=== PATIENT | female | born 1980 | race Caucasian/White ===

== ENCOUNTER 2017-02-10 16:07 | Inpatient (IN) | payer OTHER ==
[2017-02-10] MEDS ORDERED: Acetaminophen 650 MG in Premix Bag 1 BAG IV ONE (16:58)
--- NOTE | 2017-02-10 17:01 | EDM.PDOC ---
ED HPI GENERAL MEDICAL PROBLEM - General Chief Complaint: Respiratory Problem Stated Complaint: FEVER, CHILLS, BODY ACHES Time Seen by Provider: 02/10/17 16:50 Source of Information: Reports: Patient, Family, RN Notes Reviewed History Limitations: Reports: No Limitations - History of Present Illness INITIAL COMMENTS - FREE TEXT/NARRATIVE: 36-year-old female presents emergency department today with complaint of fever and chills she is vacationing from the [facility] has been in [place] for about 10 or 11 days she denies any tick exposure, does complain of body aches pain in her long bones has an upset stomach no shortness of breath or chest pain has been taking Tylenol and ibuprofen to help control fevers she is been ill for 2 days Generalized Pain Score (Numeric/FACES): 7 - Related Data Allergies Allergy/AdvReac Type Severity Reaction Status Date / Time cephalexin [From Keflex] Allergy Hives Verified 02/10/17 16:28 guaifenesin [From Mucinex] AdvReac Insomnia Verified 02/10/17 16:28 Home Meds: Home Meds Levothyroxine [Synthroid] 1 tab PO DAILY 02/10/17 [History] Past Medical History 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 Social & Family History - Tobacco Use Smoking Status *Q: Never Smoker - Recreational Drug Use Recreational Drug Use: No ED ROS GENERAL - Review of Systems Review Of Systems: See Below Constitutional: Reports: Fever, Chills, Weakness, Fatigue HEENT: Reports: No Symptoms Respiratory: Reports: Cough, Sputum Cardiovascular: Reports: No Symptoms GI/Abdominal: Reports: No Symptoms Musculoskeletal: Reports: Muscle Pain Skin: Reports: No Symptoms Neurological: Reports: No Symptoms Psychiatric: Reports: No Symptoms ED EXAM, GENERAL - Physical Exam Exam: See Below Free Text/Narrative:: General: Female in moderate discomfort secondary to muscle aches and chills, alert and oriented x3 HEENT: head is atraumatic normocephalic, eyes pupils equal round reactive to light, sclera clear no conjunctivitis appreciated. Ears tympanic membranes clear and [place]bott landmarks and light reflex are present bilaterally canals are clear. Nose no septal deviation, nares are clear, no blood present. Mouth mucosa is moist and pink no erythema or exudate noted in soft palate, tongue is midline uvula is midline, dentition is intact. Neck: Supple no thyromegaly no tracheal deviation. Nodes: Cervical nodes subclavicular nodes nontender no palpable lymphadenopathy noted. Lungs: clear to auscultation bilaterally with symmetrical respirations, no adventitious noise appreciated. CV: Regular rate and rhythm S1 and S2 appreciated no murmurs rubs or gallops noted. Abdomen: Soft, nontender, no palpable masses or organomegaly appreciated, no distention no guarding bowel sounds are present, . Neuro: Cranial nerves II through XII grossly intact Skin: Warm and dry, intact Extremities: No lower extremity edema appreciated, Course - Vital Signs Last Recorded V/S: Last Vital Signs Temp 103.2 F H 02/10/17 17:46 Pulse 113 H 02/10/17 17:46 Resp 20 02/10/17 17:46 BP 119/64 02/10/17 17:46 Pulse Ox 96 02/10/17 17:46 - Orders/Labs/Meds Orders: Active Orders 24 hr Category Date Time Status Vital Signs [RC] Q1H Care 02/10/17 16:56 Active Chest 1V Frontal [CR] Stat Exams 02/10/17 16:58 Taken CULTURE BLOOD [BC] Urgent Lab 02/10/17 16:57 Received CULTURE BLOOD [BC] Urgent Lab 02/10/17 16:57 Received CULTURE RESPIRATORY + SMEAR [RM] Stat Lab 02/10/17 17:39 Results Doxycycline [Vibramycin] 100 mg Med 02/10/17 18:30 Ordered Sodium Chloride 0.9% [Normal Saline] 100 ml IV Q12HR Blood Culture x2 Reflex Set [OM.PC] Urgent Oth 02/10/17 16:56 Ordered Medication Orders Doxycycline Hyclate 100 mg/ (Sodium Chloride) 100 mls @ 100 mls/hr IV Q12HR WYATT Labs: Laboratory Tests 02/10/17 02/10/17 02/10/17 Range/Units 16:57 16:57 16:57 WBC 7.9 (4.5-11.0) K/uL RBC 4.56 (3.30-5.50) M/uL Hgb 14.0 (12.0-15.0) g/dL Hct 41.4 (36.0-48.0) % MCV 91 (80-98) fL MCH 31 (27-31) pg MCHC 34 (32-36) % Plt Count 136 L (150-400) K/uL Neut % (Auto) 87 H (36-66) % Lymph % (Auto) 7 L (24-44) % [place] % (Auto) 6 (2-6) % Eos % (Auto) 0 L (2-4) % Baso % (Auto) 0 (0-1) % Sodium 138 L (140-148) mmol/L Potassium 3.8 (3.6-5.2) mmol/L Chloride 104 (100-108) mmol/L Carbon Dioxide 24 (21-32) mmol/L Anion Gap 13.8 (5.0-14.0) mmol/L BUN 11 (7-18) mg/dL Creatinine 0.9 (0.6-1.0) mg/dL Est Cr Clr Drug Dosing 69.66 mL/min Estimated GFR (MDRD) > 60 (>60) Glucose 94 (74-106) mg/dL Lactic Acid 3.2 H (0.4-2.0) mmol/L Calcium 8.8 (8.5-10.1) mg/dL Total Bilirubin 1.5 H (0.2-1.0) mg/dL AST 14 L (15-37) U/L ALT 1 L (12-78) U/L Alkaline Phosphatase 50 (46-116) U/L C-Reactive Protein 8.41 H (0.0-0.3) mg/dL Total Protein 7.5 (6.4-8.2) g/dL Albumin 3.5 (3.4-5.0) g/dL Globulin 4.0 H (2.3-3.5) g/dL Albumin/Globulin Ratio 0.9 L (1.2-2.2) Urine Color Urine Appearance Urine pH (4.5-8.0) Ur Specific [place] (1.008-1.030) Urine Protein (NEGATIVE) mg/dL Urine Glucose (UA) (NEGATIVE) mg/dL Urine Ketones (NEGATIVE) mg/dL Urine Occult Blood (NEGATIVE) Urine Nitrite (NEGATIVE) Urine Bilirubin (NEGATIVE) Urine Urobilinogen (NORMAL) mg/dL Ur Leukocyte Esterase (NEGATIVE) Urine RBC (0-5) Urine WBC (0-5) Ur Epithelial Cells Amorphous Sediment Urine Bacteria Urine Mucus 02/10/17 Range/Units 17:22 WBC (4.5-11.0) K/uL RBC (3.30-5.50) M/uL Hgb (12.0-15.0) g/dL Hct (36.0-48.0) % MCV (80-98) fL MCH (27-31) pg MCHC (32-36) % Plt Count (150-400) K/uL Neut % (Auto) (36-66) % Lymph % (Auto) (24-44) % [place] % (Auto) (2-6) % Eos % (Auto) (2-4) % Baso % (Auto) (0-1) % Sodium (140-148) mmol/L Potassium (3.6-5.2) mmol/L Chloride (100-108) mmol/L Carbon Dioxide (21-32) mmol/L Anion Gap (5.0-14.0) mmol/L BUN (7-18) mg/dL Creatinine (0.6-1.0) mg/dL Est Cr Clr Drug Dosing mL/min Estimated GFR (MDRD) (>60) Glucose (74-106) mg/dL Lactic Acid (0.4-2.0) mmol/L Calcium (8.5-10.1) mg/dL Total Bilirubin (0.2-1.0) mg/dL AST (15-37) U/L ALT (12-78) U/L Alkaline Phosphatase (46-116) U/L C-Reactive Protein (0.0-0.3) mg/dL Total Protein (6.4-8.2) g/dL Albumin (3.4-5.0) g/dL Globulin (2.3-3.5) g/dL Albumin/Globulin Ratio (1.2-2.2) Urine Color Yellow Urine Appearance Clear Urine pH 7.0 (4.5-8.0) Ur Specific [place] 1.010 (1.008-1.030) Urine Protein Negative (NEGATIVE) mg/dL Urine Glucose (UA) Normal (NEGATIVE) mg/dL Urine Ketones Negative (NEGATIVE) mg/dL Urine Occult Blood Moderate (NEGATIVE) Urine Nitrite Negative (NEGATIVE) Urine Bilirubin Negative (NEGATIVE) Urine Urobilinogen Normal (NORMAL) mg/dL Ur Leukocyte Esterase Negative (NEGATIVE) Urine RBC 0-5 (0-5) Urine WBC 0-5 (0-5) Ur Epithelial Cells Many Amorphous Sediment Few Urine Bacteria Rare Urine Mucus Few Meds: Medications Generic Name Dose Route Start Last Admin Trade Name Freq PRN Reason Stop Dose Admin Doxycycline Hyclate 100 mg/ 100 mls @ 100 mls/hr 02/10/17 18:30 Sodium Chloride IV Q12HR WYATT Discontinued Medications Generic Name Dose Route Start Last Admin Trade Name Freq PRN Reason Stop Dose Admin Acetaminophen 650 mg/ Premix 65 mls @ 400 mls/hr 02/10/17 16:58 02/10/17 17: 31 IV 02/10/17 17:07 400 mls/hr NOW ONE Administration Lactated Ringer's 1,000 mls @ 999 mls/hr 02/10/17 16:58 02/10/17 17:34 Ringers, Lactated IV 02/10/17 17:58 999 mls/hr BOLUS ONE Administration Ketorolac Tromethamine 30 mg 02/10/17 18:16 Toradol IVPUSH 02/10/17 18:17 ONETIME ONE Departure - Departure Time of Disposition: 18:24 Disposition: Admitted As Inpatient 68 Condition: Good Clinical Impression: Sepsis Qualifiers: Sepsis type: sepsis due to unspecified organism Qualified Code(s): A41.9 - Sepsis, unspecified organism - Discharge Information Forms: ED Department Discharge - My Orders Last 24 Hours: My Active Orders 02/10/17 16:56 Vital Signs [RC] Q1H Blood Culture x2 Reflex Set [OM.PC] Urgent 02/10/17 16:57 CULTURE BLOOD [BC] Urgent CULTURE BLOOD [BC] Urgent 02/10/17 16:58 Chest 1V Frontal [CR] Stat 02/10/17 17:39 CULTURE RESPIRATORY + SMEAR [RM] Stat 02/10/17 18:30 Doxycycline [Vibramycin] 100 mg Sodium Chloride 0.9% [Normal Saline] 100 ml IV Q12HR - Assessment/Plan Last 24 Hours: My Active Orders 02/10/17 16:56 Vital Signs [RC] Q1H Blood Culture x2 Reflex Set [OM.PC] Urgent 02/10/17 16:57 CULTURE BLOOD [BC] Urgent CULTURE BLOOD [BC] Urgent 02/10/17 16:58 Chest 1V Frontal [CR] Stat 02/10/17 17:39 CULTURE RESPIRATORY + SMEAR [RM] Stat 02/10/17 18:30 Doxycycline [Vibramycin] 100 mg Sodium Chloride 0.9% [Normal Saline] 100 ml IV Q12HR Plan: Assessment Acuity = acute Site and laterality = sepsis probable due to anaplasmosis tickborne illness complicated patient with known hypothyroidism Etiology = suspicious for tick bite Manifestations = fever, chills, muscle pain, long bone pain Location of injury = Home Lab values = platelets low at 136, sodium low at 138 consistent hyponatremia lactic acid elevated at 3.2 consistent lactic acidosis total bilirubin elevated 1.5 consistent hyperbilirubinemia AST at 14 ALTs at 1 liver enzymes a low CRP elevated at 8.42, urinalysis unremarkable chest x-ray I did review films myself I cannot appreciate any acute process, the official read from radiology is pending Plan Called discussed case with hospitalist on-call they agreed to come and evaluate the patient in the ED for admission she was started on IV doxycycline and given Toradol for muscle pain Patient was in agreement with the plan all questions were answered, This note was dictated using [employer] voice recognition software please call with any questions.
[2017-02-10] MEDS: Lactated Ringers 1,000 ML IV ONE ×2 (17:34→18:50)
[2017-02-10] MEDS ORDERED: Ketorolac 30 MG/ML SDV IVPUSH ONE (18:16)
[2017-02-10] MEDS ORDERED: Lactated Ringers 1,000 ML IV ONE (18:46)
[2017-02-10] MEDS: Doxycycline 100 MG in Sodium Chloride 0.9% 100 ML IV SCH (19:01)
[2017-02-10] MEDS ORDERED: Codeine/guaiFENesin 100mg-10 MG/5 ML Syrup 10 ML Cup PO ONE (19:06)
[2017-02-10] MEDS ORDERED: Ondansetron 4 MG/2 ML SDV IVPUSH ONE (19:06)
--- NOTE | 2017-02-10 19:35 | PCM.HP ---
H&P History of Present Illness - General Date of Service: 02/10/17 Admit Problem/Dx: Admission Diagnosis/Problem Admission Diagnosis/Problem Sepsis Source of Information: Patient, Family (), Provider, RN History Limitations: Reports: No Limitations - History of Present Illness Initial Comments - Free Text/Narative: - General Chief Complaint: Respiratory Problem Stated Complaint: FEVER, CHILLS, BODY ACHES Source of Information: Reports: Patient, Family, RN Notes Reviewed History Limitations: Reports: No Limitations - History of Present Illness 36-year-old female presents emergency department today with complaint of fever and chills, she is vacationing from the [facility] has been in [place] for about 10 or 11 days. She denies any tick exposure, does complain of body aches pain in her long bones, has an upset stomach, denies shortness of breath or chest pain, has been taking Tylenol and ibuprofen to help control fevers. She has been ill for 2 days. Acuity = acute Site and laterality = sepsis probable due to anaplasmosis tickborne illness, complicated patient with known hypothyroidism Etiology = suspicious for tick bite Manifestations = fever, chills, muscle pain, long bone pain Location of injury = Home Lab values = platelets low at 136, sodium low at 138 consistent hyponatremia lactic acid elevated at 3.2 consistent lactic acidosis total bilirubin elevated 1.5 consistent hyperbilirubinemia AST at 14 ALTs at 1 liver enzymes a low CRP elevated at 8.42, urinalysis unremarkable chest x-ray:no acute process, the official read from radiology is pending. Plan Called discussed case with hospitalist on-call they agreed to come and evaluate the patient in the ED for admission she was started on IV doxycycline and given Toradol for muscle pain. Onset of Symptoms: Reports: Gradual Duration of Symptoms: Reports: Day(s): (4) Location: Reports: Generalized (fever with shaking chills) Quality: Reports: Other (rates pain at 7 out of 10. muscle and long bone pain) Severity: Severe Improves with: Reports: None Worsens with: Reports: None Context: Reports: Other (illness for the past 4 day cough, 2 days of fever and chills.) Associated Symptoms: Reports: Cough, Fever/Chills, Headaches, Malaise, Nausea/ Vomiting Generalized Pain Score (Numeric/FACES): 7 - Related Data Allergies/Adverse Reactions: Allergies Allergy/AdvReac Type Severity Reaction Status Date / Time cephalexin [From Keflex] Allergy Hives Verified 02/10/17 16:28 guaifenesin [From Mucinex] AdvReac Insomnia Verified 02/10/17 16:28 Home Medications: Home Meds Levothyroxine [Synthroid] 1 tab PO DAILY 02/10/17 [History] 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 , lives with and 3 year old daughter in [place]) H&P Review of Systems - Review of Systems: Review Of Systems: See Below General: Reports: Fever, Chills, Malaise HEENT: Reports: Contact Lenses Pulmonary: Reports: Cough Cardiovascular: Reports: No Symptoms Gastrointestinal: Reports: Nausea, Vomiting Genitourinary: Reports: No Symptoms Musculoskeletal: Reports: Leg Pain, Joint Pain, Muscle Pain, Muscle Stiffness Skin: Reports: No Symptoms Psychiatric: Reports: No Symptoms Neurological: Reports: Headache, Tremors (secondary to high fevers) Hematologic/Lymphatic: Reports: No Symptoms Immunologic: Reports: No Symptoms Exam - Exam Exam: See Below - Vital Signs Vital Signs: Last Vital Signs Temp 38.8 C H 02/10/17 19:05 Pulse 105 H 02/10/17 19:05 Resp 20 02/10/17 19:05 BP 127/70 02/10/17 19:05 Pulse Ox 97 02/10/17 19:05 Weight: 55.1 kg - Exam General: Alert, Oriented, Cooperative, Other (laying on ER stretcher, curled up with shaking chills and fever) HEENT: PERRLA, Conjunctiva Clear, EACs Clear, EOMI, Hearing Intact, Mucosa Moist & [place], Nares Patent, Normal Nasal Septum, Posterior Pharynx Clear, Pupils Equal, Pupils Reactive, TMs Clear Neck: Supple, Trachea Midline Lungs: Clear to Auscultation, Normal Respiratory Effort, Other (cough present) Cardiovascular: Regular Rate, Regular Rhythm, Normal S1, Normal S2 GI/Abdominal Exam: Normal Bowel Sounds, Soft, Non-Tender, No Organomegaly, No Distention (Female) Exam: Deferred Rectal (Female) Exam: Deferred Back Exam: Normal Inspection Extremities: Normal Inspection, Normal Range of Motion, Non-Tender, No Pedal Edema, Normal Capillary Refill Peripheral Pulses: 2+: Dorsalis Pedis (L), Dorsalis Pedis (R) Skin: Warm, Dry, Intact Neurological: Strength Equal Bilateral, Normal Speech, Normal Tone Neuro Extensive - Mental Status: Alert, Oriented x3, Normal Mood/Affect, Normal Cognition, Memory Intact Psychiatric: Alert, Normal Affect, Normal Mood - Patient Data Lab Results Last 24 hrs: Laboratory Results - last 24 hr 02/10/17 02/10/17 02/10/17 Range/Units 16:57 16:57 16:57 WBC 7.9 (4.5-11.0) K/uL RBC 4.56 (3.30-5.50) M/uL Hgb 14.0 (12.0-15.0) g/dL Hct 41.4 (36.0-48.0) % MCV 91 (80-98) fL MCH 31 (27-31) pg MCHC 34 (32-36) % Plt Count 136 L (150-400) K/uL Neut % (Auto) 87 H (36-66) % Lymph % (Auto) 7 L (24-44) % [place] % (Auto) 6 (2-6) % Eos % (Auto) 0 L (2-4) % Baso % (Auto) 0 (0-1) % Sodium 138 L (140-148) mmol/L Potassium 3.8 (3.6-5.2) mmol/L Chloride 104 (100-108) mmol/L Carbon Dioxide 24 (21-32) mmol/L Anion Gap 13.8 (5.0-14.0) mmol/L BUN 11 (7-18) mg/dL Creatinine 0.9 (0.6-1.0) mg/dL Est Cr Clr Drug Dosing 69.66 mL/min Estimated GFR (MDRD) > 60 (>60) Glucose 94 (74-106) mg/dL Lactic Acid 3.2 H (0.4-2.0) mmol/L Calcium 8.8 (8.5-10.1) mg/dL Total Bilirubin 1.5 H (0.2-1.0) mg/dL AST 14 L (15-37) U/L ALT 1 L (12-78) U/L Alkaline Phosphatase 50 (46-116) U/L C-Reactive Protein 8.41 H (0.0-0.3) mg/dL Total Protein 7.5 (6.4-8.2) g/dL Albumin 3.5 (3.4-5.0) g/dL Globulin 4.0 H (2.3-3.5) g/dL Albumin/Globulin Ratio 0.9 L (1.2-2.2) Urine Color Urine Appearance Urine pH (4.5-8.0) Ur Specific [place] (1.008-1.030) Urine Protein (NEGATIVE) mg/dL Urine Glucose (UA) (NEGATIVE) mg/dL Urine Ketones (NEGATIVE) mg/dL Urine Occult Blood (NEGATIVE) Urine Nitrite (NEGATIVE) Urine Bilirubin (NEGATIVE) Urine Urobilinogen (NORMAL) mg/dL Ur Leukocyte Esterase (NEGATIVE) Urine RBC (0-5) Urine WBC (0-5) Ur Epithelial Cells Amorphous Sediment Urine Bacteria Urine Mucus 02/10/17 Range/Units 17:22 WBC (4.5-11.0) K/uL RBC (3.30-5.50) M/uL Hgb (12.0-15.0) g/dL Hct (36.0-48.0) % MCV (80-98) fL MCH (27-31) pg MCHC (32-36) % Plt Count (150-400) K/uL Neut % (Auto) (36-66) % Lymph % (Auto) (24-44) % [place] % (Auto) (2-6) % Eos % (Auto) (2-4) % Baso % (Auto) (0-1) % Sodium (140-148) mmol/L Potassium (3.6-5.2) mmol/L Chloride (100-108) mmol/L Carbon Dioxide (21-32) mmol/L Anion Gap (5.0-14.0) mmol/L BUN (7-18) mg/dL Creatinine (0.6-1.0) mg/dL Est Cr Clr Drug Dosing mL/min Estimated GFR (MDRD) (>60) Glucose (74-106) mg/dL Lactic Acid (0.4-2.0) mmol/L Calcium (8.5-10.1) mg/dL Total Bilirubin (0.2-1.0) mg/dL AST (15-37) U/L ALT (12-78) U/L Alkaline Phosphatase (46-116) U/L C-Reactive Protein (0.0-0.3) mg/dL Total Protein (6.4-8.2) g/dL Albumin (3.4-5.0) g/dL Globulin (2.3-3.5) g/dL Albumin/Globulin Ratio (1.2-2.2) Urine Color Yellow Urine Appearance Clear Urine pH 7.0 (4.5-8.0) Ur Specific [place] 1.010 (1.008-1.030) Urine Protein Negative (NEGATIVE) mg/dL Urine Glucose (UA) Normal (NEGATIVE) mg/dL Urine Ketones Negative (NEGATIVE) mg/dL Urine Occult Blood Moderate (NEGATIVE) Urine Nitrite Negative (NEGATIVE) Urine Bilirubin Negative (NEGATIVE) Urine Urobilinogen Normal (NORMAL) mg/dL Ur Leukocyte Esterase Negative (NEGATIVE) Urine RBC 0-5 (0-5) Urine WBC 0-5 (0-5) Ur Epithelial Cells Many Amorphous Sediment Few Urine Bacteria Rare Urine Mucus Few Result Diagrams: 02/10/17 16:57 02/10/17 16:57 Mannie Results Last 24 hrs: Microbiology 02/10/17 17:39 Gram Stain - Final Nasopharynx, Unspecified *Q Meaningful Use (ADM) - VTE *Q VTE Criteria *Q: - Stroke *Q Stroke Criteria *Q: - AMI *Q AMI Criteria *Q: - Problem List (1) Sepsis SNOMED Code(s): 78954220 ICD Code: A41.9 - SEPSIS, UNSPECIFIED ORGANISM Status: Acute Priority: High Current Visit: Yes Qualifiers: Sepsis type: sepsis due to unspecified organism Qualified Code(s): A41.9 - Sepsis, unspecified organism Problem List Initiated/Reviewed/Updated: Yes Orders Last 24hrs: Active Orders 24 hr Category Date Time Status Patient Status Manage Transfer [TRANSFER] Routine ADT 02/10/17 19:20 Ordered Vital Signs [RC] Q1H Care 02/10/17 16:56 Active Chest 1V Frontal [CR] Stat Exams 02/10/17 16:58 Taken CULTURE BLOOD [BC] Urgent Lab 02/10/17 16:57 Received CULTURE BLOOD [BC] Urgent Lab 02/10/17 16:57 Received CULTURE RESPIRATORY + SMEAR [RM] Stat Lab 02/10/17 17:39 Results Doxycycline [Vibramycin] 100 mg Med 02/10/17 18:00 Active Sodium Chloride 0.9% [Normal Saline] 100 ml IV Q12H Lactated Ringers [Ringers, Lactated] 1,000 ml Med 02/10/17 18:46 Active IV BOLUS Blood Culture x2 Reflex Set [OM.PC] Urgent Oth 02/10/17 16:56 Ordered Resuscitation Status Routine Resus Stat 02/10/17 19:21 Ordered Medication Orders Doxycycline Hyclate 100 mg/ (Sodium Chloride) 100 mls @ 100 mls/hr IV Q12H [facility] Last Admin: 02/10/17 19:01 Dose: 100 mls/hr Lactated Ringer's (Ringers, Lactated) 1,000 mls @ 999 mls/hr IV BOLUS ONE Stop: 02/10/17 19:46 Last Admin: 02/10/17 18:58 Dose: 999 mls/hr Assessment/Plan Comment:: -Assessment/Plan Comment:: Chief Complaint: Respiratory Problem Stated Complaint: FEVER, CHILLS, BODY ACHES Source of Information: Reports: Patient, Family, RN Notes Reviewed History Limitations: Reports: No Limitations - History of Present Illness 36-year-old female presents emergency department today with complaint of fever and chills, she is vacationing from the state of [place] has been in [place] for about 10 or 11 days. She denies any tick exposure, does complain of body aches pain in her long bones, has an upset stomach, denies shortness of breath or chest pain, has been taking Tylenol and ibuprofen to help control fevers. She has been ill for 2 days. Acuity = acute Site and laterality = sepsis probable due to anaplasmosis tickborne illness, complicated patient with known hypothyroidism Etiology = suspicious for tick bite Manifestations = fever, chills, muscle pain, long bone pain Location of injury = Home Lab values = platelets low at 136, sodium low at 138 consistent hyponatremia lactic acid elevated at 3.2 consistent lactic acidosis total bilirubin elevated 1.5 consistent hyperbilirubinemia AST at 14 ALTs at 1 liver enzymes a low CRP elevated at 8.42, urinalysis unremarkable chest x-ray:no acute process, the official read from radiology is pending. Mrs. Levi started on IV doxycycline and given Toradol for muscle pain in Ed Dept. ASSESSMENT AND PLAN Sepsis with unknown etiology. -IV fluids Normal Saline at 125ml/hr for hydration -Pain medication and antiemetic therapy as needed -regular diet -IV Doxycillin 500mg every 12 hours -repeat Lactic Acid at 2200 and 0200 -blood cultures pending -am labs; CBC, CMP MAINTENANCE ISSUES -DVT prophylaxis; SCD (has low platelet count) -GI prophylaxis; IV Protonix 40mg daily -Moijca catheter; not indicated -Nutrition; regular diet -Nicotine dependence; not required CODE STATUS-FULL CODE ADMISSION STATUS-patient will be admitted to inpatient status, expect at least a 2 night hospital stay for evaluation and management of problems as outlined above. At the time of this admission I do not reasonably expected evaluation and management of this problem will require more than a 96 hour hospital stay. DISPOSITION-anticipate discharge to home after the hospital stay. PRIMARY CARE PROVIDER-Outside Provider, [facility] HOSPITALIST: Dr. Earl
[2017-02-10] MEDS ORDERED: LORazepam 2 MG/ML MDV IV PRN (19:48)
[2017-02-10] MEDS ORDERED: Ondansetron 4 MG Tab.DIS PO PRN (19:48)
[2017-02-10] MEDS ORDERED: Morphine 2 MG/ML Syringe IVPUSH PRN (19:48)
[2017-02-10] MEDS ORDERED: Albuterol/Ipratropium 3.0-0.5 MG/3 ML Neb Soln NEB PRN (19:48)
[2017-02-10] MEDS ORDERED: Albuterol 0.083% 2.5 MG/3 ML Neb Soln NEB PRN (19:48)
[2017-02-10] MEDS ORDERED: Acetaminophen 325 MG Tab PO PRN (19:48)
[2017-02-10] MEDS ORDERED: oxyCODONE 5 MG Tab PO PRN (19:48)
[2017-02-10] MEDS ORDERED: Bisacodyl 5 MG Tab PO PRN (19:48)
[2017-02-10] MEDS ORDERED: Docusate Sodium 100 MG Cap PO PRN (19:48)
[2017-02-10] MEDS ORDERED: Zolpidem 5 MG Tab PO PRN (19:48)
[2017-02-10] MEDS: Pantoprazole 40 MG Vial IVPUSH SCH (20:25)
[2017-02-11] MEDS: Acetaminophen 1,000 MG in Premix Bag 1 BAG IV PRN ×2 (01:10→12:20)
[2017-02-11] MEDS: Ketorolac 30 MG/ML SDV IVPUSH PRN ×3 (03:05→23:04)
[2017-02-11] MEDS: Benzonatate 100 MG Cap PO PRN ×2 (03:05→21:57)
[2017-02-11] MEDS: Sodium Chloride 0.9% 1,000 ML IV SCH ×3 (03:06→21:57)
[2017-02-11] MEDS: Doxycycline 100 MG in Sodium Chloride 0.9% 100 ML IV SCH ×2 (05:08→17:51)
[2017-02-11] MEDS ORDERED: Doxycycline 100 MG in Sodium Chloride 0.9% 100 ML IV SCH (06:10)
[2017-02-11] MEDS: Pantoprazole 40 MG Vial IVPUSH SCH (08:55)
[2017-02-11] MEDS: Levothyroxine 50 MCG Tab PO SCH (08:55)
[2017-02-11] MEDS ORDERED: Levothyroxine 50 MCG Tab PO SCH (09:00)
--- NOTE | 2017-02-11 10:58 | CR ---
Heart size within normal limits. Right lung is clear. Patchy opacity within the left lung base media lly should indicate pneumonia. Recommend radiograph follow-up to resolution.
--- NOTE | 2017-02-11 13:55 | PCM.PN ---
- General Info Date of Service: 02/11/17 Functional Status: Reports: Pain Controlled, Tolerating Diet - Review of Systems General: Reports: Fever Gastrointestinal: Reports: Nausea Musculoskeletal: Reports: Other (diffuse muscle pains) Systems Review Comment:: Febrile overnight but diffuse pains seem to be improving and fever curve improved until this morning. Appetite improved temporarily but then she had another fever spike this afternoon. Pain returned and nausea returned. In general she's feeling better. Not much in the way of urine output yet. - Patient Data Vitals - Most Recent: Last Vital Signs Temp 38.2 C H 02/11/17 12:49 Pulse 86 02/11/17 11:07 Resp 18 02/11/17 11:07 BP 125/55 L 02/11/17 11:07 Pulse Ox 97 02/11/17 11:07 Weight - Most Recent: 55.1 kg I&O - Last 24 Hours: Intake & Output 02/10/17 02/11/17 02/11/17 22:59 06:59 14:59 Intake Total 3000 Output Total 650 600 Balance 2350 -600 Lab Results Last 24 Hours: Laboratory Results - last 24 hr 02/10/17 02/11/17 02/11/17 Range/Units 20:00 02:17 04:40 WBC 8.0 (4.5-11.0) K/uL RBC 3.87 (3.30-5.50) M/uL Hgb 11.9 L D (12.0-15.0) g/dL Hct 35.5 L (36.0-48.0) % MCV 92 (80-98) fL MCH 31 (27-31) pg MCHC 34 (32-36) % Plt Count 122 L (150-400) K/uL Neut % (Auto) 81 H (36-66) % Lymph % (Auto) 11 L (24-44) % Hancock % (Auto) 8 H (2-6) % Eos % (Auto) 0 L (2-4) % Baso % (Auto) 0 (0-1) % Sodium (140-148) mmol/L Potassium (3.6-5.2) mmol/L Chloride (100-108) mmol/L Carbon Dioxide (21-32) mmol/L Anion Gap (5.0-14.0) mmol/L BUN (7-18) mg/dL Creatinine (0.6-1.0) mg/dL Est Cr Clr Drug Dosing mL/min Estimated GFR (MDRD) (>60) Glucose (74-106) mg/dL Lactic Acid 3.4 H 0.9 (0.4-2.0) mmol/L Calcium (8.5-10.1) mg/dL Total Bilirubin (0.2-1.0) mg/dL AST (15-37) U/L ALT (12-78) U/L Alkaline Phosphatase (46-116) U/L Total Protein (6.4-8.2) g/dL Albumin (3.4-5.0) g/dL Globulin (2.3-3.5) g/dL Albumin/Globulin Ratio (1.2-2.2) 02/11/17 Range/Units 04:40 WBC (4.5-11.0) K/uL RBC (3.30-5.50) M/uL Hgb (12.0-15.0) g/dL Hct (36.0-48.0) % MCV (80-98) fL MCH (27-31) pg MCHC (32-36) % Plt Count (150-400) K/uL Neut % (Auto) (36-66) % Lymph % (Auto) (24-44) % Hancock % (Auto) (2-6) % Eos % (Auto) (2-4) % Baso % (Auto) (0-1) % Sodium 140 (140-148) mmol/L Potassium 3.8 (3.6-5.2) mmol/L Chloride 107 (100-108) mmol/L Carbon Dioxide 24 (21-32) mmol/L Anion Gap 8.6 (5.0-14.0) mmol/L BUN 9 (7-18) mg/dL Creatinine 1.0 (0.6-1.0) mg/dL Est Cr Clr Drug Dosing 62.69 mL/min Estimated GFR (MDRD) > 60 (>60) Glucose 89 (74-106) mg/dL Lactic Acid (0.4-2.0) mmol/L Calcium 7.8 L (8.5-10.1) mg/dL Total Bilirubin 1.3 H (0.2-1.0) mg/dL AST 13 L (15-37) U/L ALT 12 D (12-78) U/L Alkaline Phosphatase 35 L (46-116) U/L Total Protein 5.8 L (6.4-8.2) g/dL Albumin 2.6 L (3.4-5.0) g/dL Globulin 3.2 (2.3-3.5) g/dL Albumin/Globulin Ratio 0.8 L (1.2-2.2) Med Orders - Current: Current Medications Acetaminophen (Tylenol) 650 mg PO Q4H PRN PRN Reason: Pain/Fever Albuterol (Proventil Neb Soln) 2.5 mg NEB Q4H PRN PRN Reason: Shortness Of Breath/wheezing Albuterol/Ipratropium (Duoneb 3.0-0.5 Mg/3 Ml) 3 ml NEB QID PRN PRN Reason: Shortness Of Breath/wheezing Benzonatate (Tessalon Perles) 100 mg PO QID PRN PRN Reason: Cough Last Admin: 02/11/17 03:05 Dose: 100 mg Bisacodyl (Dulcolax) 5 mg PO DAILY PRN PRN Reason: Constipation Docusate Sodium (Colace) 100 mg PO BID PRN PRN Reason: Constipation Doxycycline Hyclate 100 mg/ (Sodium Chloride) 100 mls @ 100 mls/hr IV Q12H [facility] Last Admin: 02/11/17 05:08 Dose: 100 mls/hr Sodium Chloride (Normal Saline) 1,000 mls @ 125 mls/hr IV ASDIRECTED [facility] Last Admin: 02/11/17 12:18 Dose: 125 mls/hr Ketorolac Tromethamine (Toradol) 30 mg IVPUSH Q6H PRN PRN Reason: Pain (moderate 4-6) Stop: 02/15/17 19:49 Last Admin: 02/11/17 03:05 Dose: 30 mg Levothyroxine Sodium (Synthroid) 50 mcg PO ACBREAKFAST [facility] Last Admin: 02/11/17 08:55 Dose: 50 mcg Lorazepam (Ativan) 1 mg IV Q6H PRN PRN Reason: Nausea/Vomiting Morphine Sulfate (Morphine) 2 mg IVPUSH Q2H PRN PRN Reason: Pain (severe 7-10) Ondansetron HCl (Zofran Odt) 4 mg PO Q6H PRN PRN Reason: Nausea able to take PO Oxycodone HCl (Oxycodone) 5 mg PO Q4H PRN PRN Reason: Pain (moderate 4-6) Pantoprazole Sodium (Protonix Iv) 40 mg IVPUSH Q12H [facility] Last Admin: 02/11/17 08:55 Dose: 40 mg Zolpidem Tartrate (Ambien) 5 mg PO BEDTIME PRN PRN Reason: Sleep Discontinued Medications Acetaminophen (Tylenol) 650 mg PO Q4H PRN PRN Reason: Pain (Mild 1-3)/fever Last Admin: 02/10/17 21:25 Dose: 650 mg Guaifenesin/Codeine Phosphate (Robitussin Ac) 10 ml PO ONETIME ONE Stop: 02/10/17 19:07 Last Admin: 02/10/17 22:40 Dose: Not Given Acetaminophen 650 mg/ Premix 65 mls @ 400 mls/hr IV NOW ONE Stop: 02/10/17 17:07 Last Admin: 02/10/17 17:31 Dose: 400 mls/hr Lactated Ringer's (Ringers, Lactated) 1,000 mls @ 999 mls/hr IV BOLUS ONE Stop: 02/10/17 17:58 Last Admin: 02/10/17 18:50 Dose: 999 mls/hr Lactated Ringer's (Ringers, Lactated) 1,000 mls @ 999 mls/hr IV BOLUS ONE Stop: 02/10/17 19:46 Last Admin: 02/10/17 18:58 Dose: 999 mls/hr Acetaminophen 1,000 mg/ Premix 100 mls @ 400 mls/hr IV Q6H PRN PRN Reason: Fever/Pain Stop: 02/12/17 00:24 Last Admin: 02/11/17 12:20 Dose: 400 mls/hr Ketorolac Tromethamine (Toradol) 30 mg IVPUSH ONETIME ONE Stop: 02/10/17 18:17 Last Admin: 02/10/17 18:54 Dose: 30 mg Levothyroxine Sodium (Synthroid) 50 mcg PO DAILY [facility] Ondansetron HCl (Zofran) 4 mg IVPUSH ONETIME ONE Stop: 02/10/17 19:07 Last Admin: 02/10/17 19:18 Dose: 4 mg - Exam Quality Assessment: No: Supplemental Oxygen General: Alert, Oriented, Cooperative, No Acute Distress Neck: Supple Lungs: Normal Respiratory Effort GI/Abdominal Exam: No Distention Back Exam: Full Range of Motion Extremities: No Pedal Edema Skin: Warm, Dry Psy/Mental Status: Alert, Normal Affect - Problem List Review Problem List Initiated/Reviewed/Updated: Yes - My Orders Last 24 Hours: My Active Orders 02/11/17 13:52 Acetaminophen [Tylenol] 650 mg PO Q4H PRN - Plan Plan:: -Assessment/Plan Comment:: Probable anaplasmosis with sepsis - clinically doing much better and fever curve has been improving. -Continue IV fluids Normal Saline at 125ml/hr for hydration -Pain medication and antiemetic therapy as needed -regular diet -IV Doxycillin 100mg every 12 hours -Follow-up cultures -Repeat labs in the morning MAINTENANCE ISSUES -DVT prophylaxis; SCD (has low platelet count) -GI prophylaxis; PPI -Mojica catheter; not indicated -Nutrition; regular diet DISPOSITION-anticipate discharge to home after the hospital stay. HOSPITALIST: Dr. Earl
[2017-02-11] MEDS: Acetaminophen 325 MG Tab PO PRN ×2 (16:55→21:18)
[2017-02-12] MEDS: Acetaminophen 325 MG Tab PO PRN ×2 (01:22→08:33)
[2017-02-12] MEDS: Doxycycline 100 MG in Sodium Chloride 0.9% 100 ML IV SCH (05:22)
[2017-02-12] MEDS: Sodium Chloride 0.9% 1,000 ML IV SCH (06:27)
[2017-02-12 07:30] VITALS: BP 114/70
[2017-02-12] MEDS: Levothyroxine 50 MCG Tab PO SCH (08:15)
[2017-02-12] MEDS: Benzonatate 100 MG Cap PO PRN (08:33)
--- NOTE | 2017-02-12 08:42 | PCM.DCSUM1 ---
Discharge Summary - Hospital Course Brief History: healthy 32-year-old female who presented with fever, myalgias and cough. Workup was concerning for tickborne disease with sepsis and she was admitted for management. - Discharge Data Discharge Date: 02/12/17 Discharge Disposition: Home, Self-Care 01 Condition: Fair - Discharge Diagnosis/Problem(s) (1) Left lower lobe pneumonia SNOMED Code(s): 912196351 ICD Code: J18.1 - LOBAR PNEUMONIA, UNSPECIFIED ORGANISM Status: Acute Qualifiers: Pneumonia type: due to unspecified organism Qualified Code(s): J18.1 - Lobar pneumonia, unspecified organism (2) Sepsis SNOMED Code(s): 80601654 ICD Code: A41.9 - SEPSIS, UNSPECIFIED ORGANISM Status: Acute Priority: High Qualifiers: Sepsis type: sepsis due to unspecified organism Qualified Code(s): A41.9 - Sepsis, unspecified organism - Patient Summary/Data Labs Pending at D/C: final results of sputum culture and blood cultures which do not have any growth at the time of discharge Hospital Course: Stacy presented to the emergency room with cough, fever, myalgias and was found to have evidence for sepsis and concern for tickborne disease. She was started on doxycycline as well as IV fluids. Overnight her temperature curve didn't improve and her lactic acid level did bump up but on repeat the third level was in the normal range. The morning after admission she was actually feeling fairly good but as the morning progressed her fever came back and symptoms worsened. We elected to keep her second day for additional symptom management and IV antibiotics. Overnight she had some difficulties with ongoing fevers as well as a progressive cough though she was not hypoxic. On the morning of the second hospital day she had some nausea and generally did not feel well. Cough is productive for yellow sputum. The sputum sample collected the day after admission did reveal moderate gram-positive cocci on Gram stain. Culture was not final on the day of discharge. With the progressive cough I reviewed her chest x-ray and it was more apparent that there was a left lung pneumonia at the time of presentation. I discussed this finding with her. She reported that her family was leaving the area and returning home to [place] after their vacation. She needed to be discharged so she can travel with them. We discussed options and elected to give her a dose of IV ertapenem to provide additional coverage until her sputum culture would be final, hopefully tomorrow morning. I did discharge her with a course of doxycycline because she has shown some improvement during the hospital stay. I will be contacting her tomorrow morning with culture results. She has not needed supplemental oxygen and I think she is safe for travel at this point. Her sepsis has resolved. - Patient Instructions Diet: Regular Diet as Tolerated Activity: As Tolerated Showering/Bathing: May Shower Notify Provider of: Fever, Increased Pain, Nausea and/or Vomiting Other/Special Instructions: 1. You were in the hospital for management of left lower lobe pneumonia. I recommend 5 1/2 more days of antibiotic therapy with doxycycline. Your sputum culture is not yet final and I will contact you tomorrow morning with the results. Please avoid strenuous activities today. 2. Take the doxycycline with food to avoid stomach upset. This antibiotic can make your skin more sensitive to the sun so please use clothing or sunscreen to protect exposed skin. 3. You can alternate acetaminophen 650 mg and ibuprofen 600 mg every few hours to help with pain and fever. 4. Please seek medical attention if you develop fever >101, have severe shortness of breath or you develop severe chest pain. - Discharge Plan Prescriptions/Med Rec: Benzonatate [Tessalon Perles] 100 mg PO QID PRN #30 cap PRN Reason: Cough Doxycycline Hyclate 100 mg PO BID #11 capsule LORazepam [Ativan] 0.5 mg PO Q6H PRN #10 tablet PRN Reason: Nausea Home Medications: Home Meds Levothyroxine [Synthroid] 50 mcg PO DAILY 02/10/17 [History] Benzonatate [Tessalon Perles] 100 mg PO QID PRN #30 cap 02/12/17 [Rx] Doxycycline Hyclate 100 mg PO BID #11 capsule 02/12/17 [Rx] LORazepam [Ativan] 0.5 mg PO Q6H PRN #10 tablet 02/12/17 [Rx] Patient Handouts: Community-Acquired Pneumonia, Adult, Doxycycline tablets or capsules Referrals: PCP,None [Primary Care Provider] - (follow up with your primary care if you do not continue to get better) - Discharge Summary/Plan Comment DC Time >30 min.: No (25) - Patient Data Vitals - Most Recent: Last Vital Signs Temp 99.7 C H 02/12/17 08:33 Pulse 85 02/12/17 07:27 Resp 18 02/12/17 07:27 BP 114/70 02/12/17 07:27 Pulse Ox 90 L 02/12/17 07:27 Weight - Most Recent: 55.1 kg I&O - Last 24 hours: Intake & Output 02/11/17 02/12/17 02/12/17 22:59 06:59 14:59 Intake Total 2622 1391 Output Total 800 700 Balance 1822 691 Med Orders - Current: Current Medications Acetaminophen (Tylenol) 650 mg PO Q4H PRN PRN Reason: Pain/Fever Last Admin: 02/12/17 08:33 Dose: 650 mg Albuterol (Proventil Neb Soln) 2.5 mg NEB Q4H PRN PRN Reason: Shortness Of Breath/wheezing Albuterol/Ipratropium (Duoneb 3.0-0.5 Mg/3 Ml) 3 ml NEB QID PRN PRN Reason: Shortness Of Breath/wheezing Benzonatate (Tessalon Perles) 100 mg PO QID PRN PRN Reason: Cough Last Admin: 02/12/17 08:33 Dose: 100 mg Bisacodyl (Dulcolax) 5 mg PO DAILY PRN PRN Reason: Constipation Docusate Sodium (Colace) 100 mg PO BID PRN PRN Reason: Constipation Doxycycline Hyclate 100 mg/ (Sodium Chloride) 100 mls @ 100 mls/hr IV Q12H [facility] Last Admin: 02/12/17 05:22 Dose: 100 mls/hr Sodium Chloride (Normal Saline) 1,000 mls @ 125 mls/hr IV ASDIRECTED [facility] Last Admin: 02/12/17 06:27 Dose: 125 mls/hr Ertapenem 1 gm/ Sodium (Chloride) 100 mls @ 200 mls/hr IV ONETIME ONE Stop: 02/12/17 09:29 Ketorolac Tromethamine (Toradol) 30 mg IVPUSH Q6H PRN PRN Reason: Pain (moderate 4-6) Stop: 02/15/17 19:49 Last Admin: 02/11/17 23:04 Dose: 30 mg Levothyroxine Sodium (Synthroid) 50 mcg PO ACBREAKFAST [facility] Last Admin: 02/12/17 08:15 Dose: 50 mcg Lorazepam (Ativan) 1 mg IV Q6H PRN PRN Reason: Nausea/Vomiting Morphine Sulfate (Morphine) 2 mg IVPUSH Q2H PRN PRN Reason: Pain (severe 7-10) Ondansetron HCl (Zofran Odt) 4 mg PO Q6H PRN PRN Reason: Nausea able to take PO Last Admin: 02/12/17 00:13 Dose: 4 mg Oxycodone HCl (Oxycodone) 5 mg PO Q4H PRN PRN Reason: Pain (moderate 4-6) Last Admin: 02/12/17 00:13 Dose: 5 mg Zolpidem Tartrate (Ambien) 5 mg PO BEDTIME PRN PRN Reason: Sleep Discontinued Medications Acetaminophen (Tylenol) 650 mg PO Q4H PRN PRN Reason: Pain (Mild 1-3)/fever Last Admin: 02/10/17 21:25 Dose: 650 mg Guaifenesin/Codeine Phosphate (Robitussin Ac) 10 ml PO ONETIME ONE Stop: 02/10/17 19:07 Last Admin: 02/10/17 22:40 Dose: Not Given Acetaminophen 650 mg/ Premix 65 mls @ 400 mls/hr IV NOW ONE Stop: 02/10/17 17:07 Last Admin: 02/10/17 17:31 Dose: 400 mls/hr Lactated Ringer's (Ringers, Lactated) 1,000 mls @ 999 mls/hr IV BOLUS ONE Stop: 02/10/17 17:58 Last Admin: 02/10/17 18:50 Dose: 999 mls/hr Lactated Ringer's (Ringers, Lactated) 1,000 mls @ 999 mls/hr IV BOLUS ONE Stop: 02/10/17 19:46 Last Admin: 02/10/17 18:58 Dose: 999 mls/hr Acetaminophen 1,000 mg/ Premix 100 mls @ 400 mls/hr IV Q6H PRN PRN Reason: Fever/Pain Stop: 02/12/17 00:24 Last Admin: 02/11/17 12:20 Dose: 400 mls/hr Ketorolac Tromethamine (Toradol) 30 mg IVPUSH ONETIME ONE Stop: 02/10/17 18:17 Last Admin: 02/10/17 18:54 Dose: 30 mg Levothyroxine Sodium (Synthroid) 50 mcg PO DAILY [facility] Ondansetron HCl (Zofran) 4 mg IVPUSH ONETIME ONE Stop: 02/10/17 19:07 Last Admin: 02/10/17 19:18 Dose: 4 mg Pantoprazole Sodium (Protonix Iv) 40 mg IVPUSH Q12H [facility] Last Admin: 02/11/17 08:55 Dose: 40 mg *Q Meaningful Use (DIS) - VTE *Q VTE Criteria *Q: - Stroke *Q Stroke Criteria *Q: - AMI *Q AMI Criteria *Q:
[2017-02-12] MEDS ORDERED: Ertapenem 1 GM in Sodium Chloride 0.9% 100 ML IV ONE (09:00)
[2017-02-12] MEDS ORDERED: Ibuprofen 600 MG Tab PO PRN (11:38)
== END 2017-02-12 13:00 | disposition home or self-care (01) | DRG 871 ==
LOC: JP.ED 16:07 → JP.MS 19:20
PROVIDERS: ADMIT Internal Medicine; ATTEND Internal Medicine
DX: A41.9 Sepsis, unspecified organism (principal); J18.1 Lobar pneumonia, unspecified organism; E03.9 Hypothyroidism, unspecified; Z88.1 Allergy status to other antibiotic agents; Z88.8 Allergy status to other drugs, medicaments and biological substances
CPT/HCPCS: 36415; 71010; 71010-26; 80053; 81001; 83605; 85025; 86140; 87040; 87070; 87205; 96361; 96374; 96375; 99285-25; A9270-GY; C9113; J0131; J1335; J1885; J2060; J2405; J7030; J7040; J7120